=== PATIENT | female | born 1970 | race Caucasian/White ===

== ENCOUNTER 2018-05-27 11:46 | Emergency (ER) | payer OTHER, SELFPAY ==
[2018-05-27 11:49] VITALS: BP 124/83; PULSE 121; RESP 16; TEMP 36.7; O2SAT 98; BMI 31.1
--- NOTE | 2018-05-27 12:52 | EKG12_ITS ---
Test Reason : CELLULITIS Blood Pressure : / mmHG Vent. Rate : 102 BPM Atrial Rate : 102 BPM P-R Int : 120 ms QRS Dur : 096 ms QT Int : 344 ms P-R-T Axes : 046 -21 023 degrees QTc Int : 448 ms Sinus tachycardia Low voltage QRS Borderline ECG Confirmed by JULIETH LOWE, MARIA DE JESUS ([id number]), desk editor FABY GIRON ([id number] on 05/29/2018 1:47:22 PM Referred By: CAMDEN Confirmed By:MARIA DE JESUS CLANCY MD
--- NOTE | 2018-05-27 12:54 | ED.DCSUM_ITS ---
- ER Visit Summary Date of Service: 05/27/18 Chief Complaint: Left arm swelling History of Present Illness: The patient is a 48 F who presents for 2 days of left arm swelling and feeling unwell. Patient states that 2 days ago she felt like she had flulike symptoms, with achiness, nausea, and yesterday when she woke up she could hardly move because she hurt all over. Her bones and muscles all ache. She noted tenderness and swelling along a surgical incision of her left forearm where she had a metal plate put in. Patient had an accident in 1991 requiring surgery on her left forearm with the plate placement. Patient was placed on Macrobid for urinary tract infection 1 week ago and began developing a pruritic rash on her extremities and torso after a few days of the medication. She stopped taking the medication with 2 doses left to go. She is not sure what day was her final dose. Rash started after the antibiotic. Physical Examination: Vital signs: afebrile, hemodynamically stable, no hypoxia on room air General: well nourished, well developed, in no distress Skin: warm, dry, no pallor, erythematous papular nodular rash with areas of coalescence on the bilateral posterior shoulders, left lower back, and scattered papular nodular lesions on the bilateral anterior shins and left posterior thigh. Left arm has erythema, tenderness and swelling without fluctuance or induration along the surgical incision from the plate. HEENT: normocephalic and atraumatic; PERRL, EOMI, moist mucous membranes, no mucosal lesions Cardiovascular: Tachycardic rate and rhythm without murmurs, no peripheral edema , 2+ pulses all distal extremities Respiratory: No increased work of breathing, lungs are clear to auscultation bilaterally, no rales, rhonchi or wheezing Abdominal: Abdomen is soft, nontender with normoactive bowel sounds, no guarding or rebound, no masses MSK: Moves all extremities, no deformities, normal strength Neuro: Awake and alert, oriented ?4. No facial droop, sensation and motor function intact and symmetric Test Results: Abnormal Lab Results 05/27/18 05/27/18 05/27/18 13:14 13:14 13:14 WBC 10.2 RBC 5.25 Hgb 15.4 H Hct 45.5 MCV 86.7 MCH 29.3 MCHC 33.8 RDW 13.5 RDW Differential 43.4 Plt Count 251 MPV 10.5 Immature Gran % (Auto) 0.400 Neut % (Auto) 73.1 H Lymph % (Auto) 14.6 L [place] % (Auto) 11.5 H Eos % (Auto) 0.2 Baso % (Auto) 0.2 Absolute Neuts (auto) 7.5 Absolute Lymphs (auto) 1.49 Total Counted Not Reportable PT 13.2 INR 1.0 APTT 29.7 Sodium 135 L Potassium 3.6 Chloride 100 Carbon Dioxide 27.0 Anion Gap 8 BUN 15 Creatinine 0.81 Estim Creat Clear Calc 74.94 Est GFR (MDRD) Af Amer 98 Est GFR (MDRD) Non-Af 81 BUN/Creatinine Ratio 18.5 Glucose 108 H Lactic Acid Calcium 9.2 Total Bilirubin 0.50 AST 20 ALT 25 Alkaline Phosphatase 82 Total Creatine Kinase 138 Total Protein 8.3 H Albumin 3.5 Globulin 4.8 H Albumin/Globulin Ratio 0.7 L Urine Color Urine Clarity Urine pH Ur Specific [place] Urine Protein Urine Glucose (UA) Urine Ketones Urine Occult Blood Urine Nitrite Urine Bilirubin Urine Urobilinogen Ur Leukocyte Esterase Urine RBC Urine WBC Ur Squamous Epith Cells Urine Bacteria Hyaline Casts Urine Mucus 05/27/18 05/27/18 13:14 13:55 WBC RBC Hgb Hct MCV MCH MCHC RDW RDW Differential Plt Count MPV Immature Gran % (Auto) Neut % (Auto) Lymph % (Auto) [place] % (Auto) Eos % (Auto) Baso % (Auto) Absolute Neuts (auto) Absolute Lymphs (auto) Total Counted PT INR APTT Sodium Potassium Chloride Carbon Dioxide Anion Gap BUN Creatinine Estim Creat Clear Calc Est GFR (MDRD) Af Amer Est GFR (MDRD) Non-Af BUN/Creatinine Ratio Glucose Lactic Acid 1.1 Calcium Total Bilirubin AST ALT Alkaline Phosphatase Total Creatine Kinase Total Protein Albumin Globulin Albumin/Globulin Ratio Urine Color Yellow Urine Clarity Sl. Cloudy Urine pH 5.0 Ur Specific [place] 1.020 Urine Protein 30 H Urine Glucose (UA) Normal Urine Ketones 5 H Urine Occult Blood Negative Urine Nitrite Negative Urine Bilirubin Negative Urine Urobilinogen Normal Ur Leukocyte Esterase 25 H Urine RBC 0 SEEN Urine WBC 0-5 SEEN Ur Squamous Epith Cells 0-5 SEEN Urine Bacteria 1+ Hyaline Casts 5-10 SEEN Urine Mucus 1+ Clinical Impression(s) from Imaging Studies Forearm X-Ray 05/27/18 12:55 IMPRESSION: Soft tissue swelling. Prior ORIF of the entire ulna. Electronically Signed: Tomas Lynne MD at 13:50 EDT Tel [phone], Service support , Chest X-Ray 05/27/18 13:15 IMPRESSION: Scattered calcified granulomas. Electronically Signed: Tomas Lynne MD at 13:51 EDT Tel [phone], Service support , Emergency Department Course and Treatment: Patient presents for general malaise and a rash, concern for possible cellulitis. Patient was tachycardic and initial presentation, and given the cellulitic appearance of her left forearm, sepsis workup was performed. Patient was afebrile. Labs showed no leukocytosis , no electrolyte derangements. Urine was negative for infection, but patient has been on antibiotics and thus may have a partially treated UTI. EKG showed a sinus tachycardia rate of 102 with a right bundle branch pattern, no ischemic changes. Patient received IV hydration and Toradol for her achiness. Chest x- ray showed no signs of pneumonia. X-ray of the left forearm showed the hardware in place and superficial soft tissue swelling with no deep space involvement. It is unlikely that patient's erythema and tenderness of the left forearm is related to the hardware that is been in place for 25 years. Patient also has no history of IV drug use it would be concerning for endocarditis, and there are no track phillips in the vicinity of patient's rash on her arms. Patient felt better after receiving IV fluids and pain medication. She was started on keflex and bactrim for treatment of concern for cellulitis of the left forearm. This will also complete treatment of any UTI since patient did not complete her antibiotics last week. She states she is still having urinary symptoms and lower back pain, which she did not mention on the initial evaluation. Patient was not placed on any prednisone for the pruritic rash on her torso and lower extremities but instead was prescribed Benadryl to help with the pruritus. Patient discharged home in improved condition. Treatment Plan: [] Disposition: [] Impression: Left forearm cellulitis, incompletely treated UTI, adverse reaction to Macrobid This note was generated with [employer] dictation software. It may contain incorrect words, spelling, and punctuation that were not noted in review of the chart prior to signing ED Disposition - Plan for ED Patient: Disposition: Home or Assisted Living Chief Complaint: Cellulitis Instructions: ED Infec Skin Cellulitis Prescriptions: Cephalexin [Keflex] 500 mg PO Q6 #40 cap DiphenhydrAMINE [Benadryl] 25 mg PO TID PRN PRN #20 cap PRN Reason: Itching Smz/Tmp Ds [Bactrim Ds] 1 tab PO BID #20 tab Referrals: Enoch Barba MD [STAFF PHYSICIAN] - 3-5 Days if not improving Care Physician,No Primary [Primary Care Provider] - Additional Instructions: Please take the antibiotics as prescribed for the concern for cellulitis on your arm. The antibiotics will also finish treating your urinary tract infection. You may use Benadryl as needed for the itchy rash on your legs and torso. If you have any worsening of your condition or any new concerning symptoms, please return immediately to the emergency department for another evaluation.
--- NOTE | 2018-05-27 12:55 | RAD_ITS ---
STUDY: X-RAY - LEFT RADIUS AND ULNA REASON FOR EXAM: Female, 48 years old. Possible infection. TECHNIQUE: 2 view(s) of the forearm. COMPARISON: None. FINDINGS: Soft tissue swelling. Normal visualized radius. The patient is status post open reduction and internal fixation of the ulna with screw and sideplate fixation devices. RAD/Forearm 2 Views IMPRESSION: Soft tissue swelling. Prior ORIF of the entire ulna. Electronically Signed: Tomas Lynne MD at 13:50 EDT Tel [phone], Service support ,
--- NOTE | 2018-05-27 13:13 | NURSING ---
NO OLD EKGS
--- NOTE | 2018-05-27 13:15 | RAD_ITS ---
STUDY: X-RAY CHEST REASON FOR EXAM: Female, 48 years old. Chest pain. TECHNIQUE: PA and lateral views of the chest. COMPARISON: None. FINDINGS: The lungs are clear and expanded. Scattered calcified granulomas. There is no demonstrated pleural abnormality. Normal size heart. Normal mediastinum and javier. Normal visualized pulmonary arteries. There is atherosclerotic tortuosity of the aortic arch and descending thoracic aorta. Normal visualized thoracic spine. Normal visualized ribs, clavicles, and shoulders. There is no demonstrated abnormality of the visualized soft tissue structures of the upper abdomen. RAD/Chest PA and Lateral IMPRESSION: Scattered calcified granulomas. Electronically Signed: Tomas Lynne MD at 13:51 EDT Tel [phone], Service support ,
[2018-05-27 13:29] LABS: Absolute Lymphocyte Count 1.49 X10^3/ul (0.83-4.51); Absolute Neutrophil Count 7.5 X10^3/uL (2.0-7.7); Basophil# 0.02 X10^3/uL; Basophil% 0.2 % (0-1); Eosinophil# 0.02 X10^3/uL; Eosinophils% 0.2 % (0-5); Hematocrit 45.5 % (37-47); Hemoglobin 15.4 g/dl (12.0-15.0); Lymphocyte # 1.49 X10^3/ul (4.0); Lymphocyte % 14.6 % (19-41); Mean Corp Hgb Conc 33.8 g/gl (32-36); Mean Corpuscular Hgb 29.3 pg (27.0-32.0); Mean Corpuscular Volume 86.7 fL (81-99); Mean Platelet Vol. 10.5 fl (6.2-12.0); Monocyte# 1.17 X10^3/uL; Monocyte% 11.5 % (0-10); Neutrophil # 7.45 X10^3/uL (2.7-7.7); Neutrophil % 73.1 % (47-70); Platelet Count 251 K/mm3 (150-450); RBC Distribution Width CV 13.5 % (11.6-14.6); RBC Distribution Width SD 43.4 fl (35.1-43.9); Red Blood Count 5.25 M/mm3 (4.2-5.4); White Blood Count 10.2 K/mm3 (4.4-11.0)
[2018-05-27 13:31] LABS: POSITIVE COUNT NO; POSITIVE DIFFERENTIAL NO; POSITIVE MORPHOLOGY NO
[2018-05-27 13:35] LABS: Prothrombin Time (Protime)PT. 13.2 SECONDS (11.7-14.9)
[2018-05-27 13:36] LABS: Partial Thromboplast Time 29.7 Seconds (24.1-36.2)
[2018-05-27] MEDS: 0.9% Normal Saline 1,000 ML 250 ML IV (13:43)
[2018-05-27] MEDS: Ketorolac 15 MG/ML Vial IV (13:43)
[2018-05-27 13:44] LABS: ALB/GLOB Ratio 0.7 RATIO (0.9-2.4); AST(SGOT) 20 U/L (15-37); Alanine Aminotransfer ALT/SGPT 25 U/L (13-56); Albumin, Serum 3.5 g/dL (3.2-5.0); Alkaline Phosphatase 82 U/L (45-117); Anion Gap 8 (5-15); BUN 15 mg/dL (7-18); BUN/Creat Ratio 18.5 RATIO (10-20); CPK Total, Creatine Kinase 138 U/L (26-192); Calcium,Total 9.2 mg/dL (8.5-10.1); Chloride 100 mmol/L (98-107); Creatinine, Serum 0.81 mg/dL (0.55-1.02); EST Glomerular Filtration Rate 81 mL/min (>60); Est Glom Filt Rate - Afr Amer 98 mL/min (>60); Estimated Creatinine Clearance 74.94 ml/min; Globulin 4.8 g/dL (2.2-4.2); Glucose 108 mg/dL (74-106); Potassium 3.6 mmol/L (3.5-5.1); Protein, Total 8.3 g/dL (6.4-8.2); Sodium Level 135 mmol/L (136-145)
[2018-05-27 13:48] LABS: Lactic Acid 1.1 mmol/L (0.4-2.0)
[2018-05-27 14:00] VITALS: BP 116/84; PULSE 96; RESP 16; TEMP 37.1; O2SAT 97
[2018-05-27 14:02] LABS: Red Blood Cells-Urine 0 SEEN /hpf (0-5)
[2018-05-27 14:04] LABS: Color, Urine Yellow (Yellow); Glucose, Dipstick Normal (Normal); Ketone-Dipstick 5 mg/dl (Negative); Leukocyte Esterase-Dipstick 25 /ul (Negative); Nitrite-Dipstick Negative (Negative); Occult Blood-Urine Negative /ul (Negative); Protein-Dipstick 30 mg/dl (Negative); Urine Bilirubin Dipstick Negative (Negative); Urine Clarity Sl. Cloudy (Clear); Urine Urobilinogen Normal (Normal)
[2018-05-27 14:10] LABS: Bacteria 1+ /hpf (None Seen); Hyaline Cast 5-10 SEEN /lpf (0-5); Mucous, Urine 1+ /hpf (<or=2+); Squamous Epithelial Cells - UA 0-5 SEEN /hpf (5-10); White Blood Cells 0-5 SEEN /hpf (0-5)
[2018-05-27 15:12] VITALS: BP 130/115; PULSE 88; RESP 16; O2SAT 97
--- NOTE | 2018-05-27 15:50 | ED.DEP ---
ED Disposition - Plan for ED Patient: Disposition: Home or Assisted Living Chief Complaint: Cellulitis Instructions: ED Infec Skin Cellulitis Prescriptions: Cephalexin [Keflex] 500 mg PO Q6 #40 cap DiphenhydrAMINE [Benadryl] 25 mg PO TID PRN PRN #20 cap PRN Reason: Itching Smz/Tmp Ds [Bactrim Ds] 1 tab PO BID #20 tab Referrals: Care Physician,No Primary [Primary Care Provider] - Enoch Barba MD [STAFF PHYSICIAN] - 3-5 Days if not improving Additional Instructions: Please take the antibiotics as prescribed for the concern for cellulitis on your arm. The antibiotics will also finish treating your urinary tract infection. You may use Benadryl as needed for the itchy rash on your legs and torso. If you have any worsening of your condition or any new concerning symptoms, please return immediately to the emergency department for another evaluation.
[2018-05-27 16:03] VITALS: PULSE 91; RESP 16; O2SAT 98
[2018-05-27] MEDS: Smz/Tmp Ds Tablet 1 TABLET PO (16:26)
[2018-05-27] MEDS: Cephalexin 250 MG Capsule 500 MG PO (16:26)
== END 2018-05-27 16:28 | disposition home or self-care (01) ==
PROVIDERS: Emergency Provider Emergency Medicine
DX: L03.114 Cellulitis of left upper limb (principal); N39.0 Urinary tract infection, site not specified; T37.8X5A Adverse effect of other specified systemic anti-infectives and antiparasitics, initial encounter; Y92.9 Unspecified place or not applicable; Z72.0 Tobacco use
CPT/HCPCS: 36415; 71046; 73090; 80053; 81001; 82550; 83605; 85025; 85610; 85730; 87040; 87086; 93005; 99285; J7030; A4216

== ENCOUNTER 2018-05-29 12:51 | Emergency (ER) | payer OTHER, SELFPAY ==
[2018-05-29 12:53] VITALS: BP 110/71; PULSE 113; RESP 16; TEMP 37; O2SAT 99; BMI 31.2
--- NOTE | 2018-05-29 14:21 | ED.VISSUMM ---
- ER Visit Summary Date of Service: 05/29/18 Chief Complaint: Rash History of Present Illness: The patient is a 48 F presents with a rash, she was recently seen here and was found to have cellulitis of her left upper extremity and started on Bactrim and Keflex. Actually she has been on Bactrim for UTI prior to even her arrival. She now notices lesions on her shins. She is also quite stressed out and she has neck back and headache. No fever or chills. No cough. No other systemic complaints. Physical Examination: Anxious appearing. Moist mucous membranes, no obvious facial deformity No C-spine tenderness supple neck. Regular rate and rhythm without any obvious murmurs Clear lungs bilaterally speaking in full sentences without any obvious respiratory distress Abdomen soft and nontender no guarding or rebound Patient has red erythematous rash on the shins consistent with erythema nodosum There is slightly erythematous rash over left forearm region no significant pallor. Emergency Department Course and Treatment: Patient has erythema nodosum, this is likely compared to her antibiotics I will change to clindamycin just in case the left forearm has cellulitis. Her headache is likely secondary to tension headache which I will treat. Disposition: Discharge stable condition Impression: Erythema nodosum Cellulitis This note was generated with [employer] dictation software. It may contain incorrect words, spelling, and punctuation that were not noted in review of the chart prior to signing ED Disposition - Plan for ED Patient: Disposition: Home or Assisted Living Chief Complaint: Cellulitis Instructions: Discharge Instructions for Cellulitis Prescriptions: Hydrocodone Bitart/Apap 5-325 [[place] 5/325] 1 - 2 tab PO Q4H PRN PRN 3 Days #12 tab PRN Reason: Pain Clindamycin [Cleocin] 150 mg PO 4X/DAY #40 cap Referrals: Care Physician,No Primary [Primary Care Provider] - 2 Days
[2018-05-29] MEDS: HYDROcodone Bitartrate/Apap 5/325 Tablet PO (14:27)
[2018-05-29] MEDS: Ondansetron ODT 4 MG Tablet PO (14:27)
--- NOTE | 2018-05-29 14:30 | ED.DCSUM_ITS ---
- ER Visit Summary Date of Service: 05/29/18 Chief Complaint: Rash History of Present Illness: The patient is a 48 F presents with a rash, she was recently seen here and was found to have cellulitis of her left upper extremity and started on Bactrim and Keflex. Actually she has been on Bactrim for UTI prior to even her arrival. She now notices lesions on her shins. She is also quite stressed out and she has neck back and headache. No fever or chills. No cough. No other systemic complaints. Physical Examination: Anxious appearing. Moist mucous membranes, no obvious facial deformity No C-spine tenderness supple neck. Regular rate and rhythm without any obvious murmurs Clear lungs bilaterally speaking in full sentences without any obvious respiratory distress Abdomen soft and nontender no guarding or rebound Patient has red erythematous rash on the shins consistent with erythema nodosum There is slightly erythematous rash over left forearm region no significant pallor. Emergency Department Course and Treatment: Patient has erythema nodosum, this is likely compared to her antibiotics I will change to clindamycin just in case the left forearm has cellulitis. Her headache is likely secondary to tension headache which I will treat. Disposition: Discharge stable condition Impression: Erythema nodosum Cellulitis This note was generated with [employer] dictation software. It may contain incorrect words, spelling, and punctuation that were not noted in review of the chart prior to signing ED Disposition - Plan for ED Patient: Disposition: Home or Assisted Living Chief Complaint: Cellulitis Instructions: Discharge Instructions for Cellulitis Prescriptions: Hydrocodone Bitart/Apap 5-325 [[place] 5/325] 1 - 2 tab PO Q4H PRN PRN 3 Days #12 tab PRN Reason: Pain Clindamycin [Cleocin] 150 mg PO 4X/DAY #40 cap Referrals: Care Physician,No Primary [Primary Care Provider] - 2 Days
[2018-05-29 14:42] VITALS: BP 112/73; PULSE 102; RESP 18; O2SAT 97
--- NOTE | 2018-05-29 14:43 | ED.RN ---
REVIEWED D/C INSTRUCTIONS, FOLLOW UP CARE, PRESCRIPTIONS, AND S/S THAT WOULD WARRANT A RETURN TO THE ED WITH PT. PT VERBALIZED AN UNDERSTANDING AND DENIES FURTHER QUESTIONS FOR THIS RN. PT SKIN P/W/D, RESP EVEN AND UNLABORED, PT A&O X 3, NO DISTRESS NOTED.
--- NOTE | 2018-05-29 14:54 | ED.RN ---
PT AMBULATED OUT OF ED, GAIT STEADY.
== END 2018-05-29 14:54 | disposition home or self-care (01) ==
LOC: ED 14:52
PROVIDERS: Emergency Provider Emergency Medicine
DX: L52 Erythema nodosum (principal); N39.0 Urinary tract infection, site not specified; L03.114 Cellulitis of left upper limb
CPT/HCPCS: 99283